=== PATIENT | female | born 1930 | race Caucasian/White ===

== ENCOUNTER 2016-07-19 13:30 | Outpatient (RCR) | payer MEDICARE ==
[~2016-07-19] VITALS: Ht 162.6 cm; Wt 63.5 kg
[2016-08-03] MEDS ORDERED: Lidocaine 4% Top Soln 50ml TOPIC ONE (11:30)
[2016-08-04] MEDS ORDERED: Lidocaine 4% Top Soln 50ml TOPIC ONE (10:00)
[2016-08-10] MEDS ORDERED: Lidocaine/Epinephrine 2% 20 ML VIAL IV ONE (17:00)
== END 2016-08-18 | disposition home or self-care (01) ==
LOC: WCC 13:30
DX: L03.116 Cellulitis of left lower limb (principal); L97.323 Non-pressure chronic ulcer of left ankle with necrosis of muscle; R60.0 Localized edema; I73.9 Peripheral vascular disease, unspecified; Z90.89 Acquired absence of other organs; Z98.84 Bariatric surgery status; M81.0 Age-related osteoporosis without current pathological fracture; G30.9 Alzheimer's disease, unspecified; F02.80 Dementia in other diseases classified elsewhere, unspecified severity, without behavioral disturbance, psychotic disturbance, mood disturbance, and anxiety; M19.90 Unspecified osteoarthritis, unspecified site; D64.9 Anemia, unspecified
CPT/HCPCS: 11043; 11100; 73721; 87070; 87181; 87205; G0463

== ENCOUNTER → 2016-08-09 | Outpatient (CLI) | payer MEDICARE ==
[~2016-08-09] VITALS: Ht 162.6 cm; Wt 63.5 kg
[~2016-08-09] MED LIST: ACETAMINOPHEN325 M1 ORAL; ARTIFICIAL TEA1 EAC2 BOTH EYES; CITALOPRAM HBR10 M1 ORAL; DICLOFENAC 1% GEL TOPIC; DONEPEZIL HCL10 M2 ORAL; DOXYCYCLINE HY100 M2 ORAL; ENSURE ORIGINA237 ML PO; FERROUS SULFAT325 MG ORAL; GABAPENTIN300 MG ORAL; LOPERAMIDE2 MG PO; LORAZEPAM1 MG ORAL; Lidocaine 4% Top Soln 50ml TOPIC ONE; OMEPRAZOLE40 M1 ORAL; TRIAMCINOLONE 0.1% TP; TYLENOL EXTRA500 MG ORAL; VITAMIN D400 INTLU ORAL
--- NOTE | 2016-08-09 16:51 | Diagnostic Imaging Report ---
Indication: Nonhealing wound in the lateral part ankle. Technique: Left ankle/hindfoot imaging utilizing multiplanar T1 fast spin-echo, proton and T2 fast spin-echo with fat saturation, and STIR. Comparison: None Findings: The area of ulceration and skin/subcutaneous edema is noted on the lateral part of the ankle. The skin defect is noted. The adjacent lateral malleolus demonstrates normal bone marrow signal. The other osseous structures demonstrated on this study which include the ankle and hindfoot demonstrates normal signal intensity without evidence of osteomyelitis. Generalized subcutaneous edema is also noted within the ankle and the visualized part of the lower leg. There is no obvious abscess. Impression: No evidence of acute osteomyelitis or definite evidence of abscess. Lateral ankle nonhealing wound/ulceration noted. Cellulitis noted.
== END | disposition home or self-care (01) ==
LOC: MRI 08-04 10:07
DX: M86.9 Osteomyelitis, unspecified (principal); L03.116 Cellulitis of left lower limb

== ENCOUNTER 2016-08-25 18:07 | Inpatient (IN) | payer MEDICARE ==
[~2016-08-25] VITALS: Ht 154.9 cm; Wt 49.9 kg
[2016-08-25] MEDS ORDERED: Unasyn 3gm Inj ONE (18:43)
--- NOTE | 2016-08-25 18:43 | Emergency Room Report ---
History of Present Illness General Chief Complaint: General Complaint Source: Medical Record, EMS, PMD Present Illness HPI 86 YOF sent by PMD Dr Young from [facility] for evaluation of "wound" to be treated with IV Abx as patient cant get IV Abx at SNF. Few days-week duration. Denies fever/chills. Allergies: Coded Allergies: NO KNOWN DRUG ALLERGIES (Verified Allergy, Unknown, 08/03/16) Patient History Limited by: language barrier, age, medical condition, other - Alzheimers dementia Past Medical History: HTN, other - Alzheimers, dementia, depression, HTN, osteopororosis, CKD Past Surgical History: unable to obtain Pertinent Family History: unable to obtain Social History: Denies: alcohol use, drug use, smoking Last Menstrual Period: n/a Now: No Immunizations: UTD Nursing Documentation-PMH Hx Hypertension: Yes History Of Psychiatric Problem: Yes - depression osteoporosis Hx Neurological Problems: Yes - dementia Review of Systems All Other Systems: limited - limited by alzheimers Physical Exam Vital Signs Date Time Temp Pulse Resp B/P Pulse Ox O2 Delivery O2 Flow Rate FiO2 08/25/16 18:11 99.0 87 16 103/62 99 Room Air Sp02 EP Interpretation: reviewed, normal General Appearance: normal inspection, well appearing, no apparent distress, alert, GCS 15, non-toxic Head: normocephalic, atraumatic Eyes: bilateral eye EOMI, bilateral eye PERRL ENT: normal ENT inspection, hearing grossly normal, normal voice Neck: normal inspection, full range of motion, supple, no bony tend Respiratory: normal inspection, lungs clear, normal breath sounds, no respiratory distress, no retraction, no wheezing Cardiovascular #1: regular rate, rhythm, no edema Gastrointestinal: normal inspection, normal bowel sounds, non tender, soft, no guarding, no hernia Genitourinary: no CVA tenderness Musculoskeletal: normal inspection, back normal, normal range of motion, Austin' s Sign negative Neurologic: normal inspection, alert, responsive, speech normal Psychiatric: normal inspection, judgement/insight normal, mood/affect normal Skin: normal inspection, other - left lower extremity: There is a large area of warm erythema with central ulcer *stage 1* on lateral portion of lower extremity near ankle. Diffusely tender to palpation. Circumferential of foot. There is also some erythema/ecchymoses of upper left thigh Medical Decision Making Diagnostic Impression: Primary Impression: Cellulitis of leg, left ER Course 86 YOF with pain, swelling, redness to lower left extremity. VSS. Afebrile. Not septic. Baseline dementia. Labs: H&H stable. Leuks normal. Empiric Abx given for presumed cellulitis Blood Cx pending Endorsed to Dr Ham for med/surg admission at 645pm Rhythm Strip Diag. Results EP Interpretation: yes Rate: 82 Rhythm: NSR, no PVC's, no ectopy Last Vital Signs Date Time Temp Pulse Resp B/P Pulse Ox O2 Delivery O2 Flow Rate FiO2 08/25/16 18:11 99.0 87 16 103/62 99 Room Air Status: improved Disposition: ADMITTED INPATIENT Condition: Serious SHMUEL ROBERTSON M.D. Aug 25, 2016 18:43
[2016-08-25] MEDS ORDERED: Vancomycin 1 GM in NS 275 ML IV ONE (18:45)
[2016-08-25] MEDS ORDERED: Ampicillin/Sulbactam Sod 3 GM in NS 110 ML IV SCH (18:45)
[2016-08-25 19:20] LABS: ALANINE AMINOTRANSFERASE 7 U/L (3-33); ALBUMIN/GLOBULIN RATIO 0.9 (1.0-2.7); ANION GAP 18 (5-15); ASPARTATE AMINO TRANSFERASE 13 U/L (5-40); CALCIUM 9.1 mg/dL (8.6-10.2); CARBON DIOXIDE 25 mEQ/L (20-30); CHLORIDE 98 mEQ/L (98-107); CREATININE 0.7 mg/dL (0.5-0.9); HEMOLYSIS 5; POTASSIUM 3.5 mEQ/L (3.4-4.9); SODIUM 141 mEQ/L (135-145); TOTAL PROTEIN 7.5 g/dL (6.6-8.7)
[2016-08-25 19:23] LABS: BASOPHILS % (AUTO) 0.9 % (0.0-2.0); LYMPHOCYTES % (AUTO) 20.3 % (20.0-45.0); MEAN CORPUSCULAR HGB CONC 33.2 G/DL (32.0-36.0); MEAN CORPUSCULAR VOLUME 84 FL (80-99); MEAN PLATELET VOLUME 5.2 FL (6.5-10.1); MONOCYTES % (AUTO) 4.4 % (1.0-10.0); NEUTROPHILS % (AUTO) 73.4 % (45.0-75.0); PLATELET COUNT 405 K/UL (150-450); RED BLOOD COUNT 3.59 M/UL (4.20-5.40); RED CELL DISTRIBUTION WIDTH 13.4 % (11.6-14.8); WHITE BLOOD COUNT 8.1 K/UL (4.8-10.8)
[2016-08-25 19:30] LABS: CKMB < 1.5 ng/mL (< 3.8)
[2016-08-25] MEDS ORDERED: Vancomycin 1gm inj IVPB ONE (19:38)
[2016-08-25 20:30] VITALS: BP 147/96
[2016-08-25] MEDS ORDERED: Haloperidol 5mg/ml Inj IM ONE (20:30)
--- NOTE | 2016-08-25 20:31 | History & Physical ---
History and Physical History & Physicial H&P dictated #[id number] Dx: Left LE Cellulitis with wound Possible PAD with LLE arterial ulcer Dementia HTN Osteoporosis plan abx - vanco arterial US Vascular consult zyprexa prn agitation 1:1 SANTINO Momin M.D. Aug 25, 2016 20:31
[2016-08-25] MEDS ORDERED: Enoxaparin 40mg Inj SUBQ SCH (21:00)
[2016-08-25] MEDS ORDERED: DONEPEZIL HCL10 M2 ORAL (22:13)
[2016-08-25] MEDS ORDERED: CITALOPRAM HBR10 M1 ORAL (22:13)
[2016-08-25] MEDS ORDERED: TYLENOL EXTRA500 MG ORAL (22:13)
[2016-08-25] MEDS ORDERED: FERROUS SULFAT325 MG ORAL (22:14)
[2016-08-25] MEDS ORDERED: ENSURE ORIGINA237 ML PO (22:14)
[2016-08-25] MEDS ORDERED: GABAPENTIN300 MG ORAL (22:14)
[2016-08-25] MEDS ORDERED: VITAMIN D400 INTLU ORAL (22:16)
[2016-08-25] MEDS ORDERED: LORAZEPAM1 MG ORAL (22:16)
[2016-08-25] MEDS ORDERED: OMEPRAZOLE40 M1 ORAL (22:16)
[2016-08-25] MEDS ORDERED: ARTIFICIAL TEA1 EAC2 BOTH EYES (22:20)
[2016-08-25] MEDS ORDERED: DICLOFENAC 1% GEL TOPIC (22:20)
[2016-08-25] MEDS ORDERED: ACETAMINOPHEN325 M1 ORAL (22:20)
[2016-08-25] MEDS ORDERED: LOPERAMIDE2 MG PO (22:23)
[2016-08-25] MEDS ORDERED: TRIAMCINOLONE 0.1% TP (22:23)
[2016-08-25] MEDS ORDERED: LORazepam Inj 2mg/ml 1ml IV ONE (23:15)
[2016-08-26 00:03] VITALS: BP 103/93
--- NOTE | 2016-08-26 00:38 | History and Physical Report ---
DATE OF ADMISSION: 08/25/2016 REASON FOR ADMISSION: Left leg wound and cellulitis. HISTORY OF PRESENT ILLNESS: This is an 86-year-old female with history of severe dementia, depression, hypertension, osteoporosis, and CKD, who presents to the emergency room because of the left leg wound that is getting worse, more red. The patient is very confused and is unable to give any history. She is alert, awake, and oriented x1 at baseline. She was assessed as outpatient for left leg wound infection with dressing x1 week that has not been healing. There is redness and swelling around the left leg. It appears to be left ankle ulcer. PAST MEDICAL HISTORY: Alzheimer's dementia, depression, hypertension, osteoporosis, and CKD. PAST SURGICAL HISTORY: Unknown. MEDICATIONS: Acetaminophen, citalopram, donepezil, ferrous sulfate, gabapentin, lorazepam, vitamin D3, and artificial tears. ALLERGIES: No known drug allergies. SOCIAL HISTORY: The patient is coming in from [facility] . She does not smoke, drink alcohol, or use any drugs. REVIEW OF SYSTEMS: Unobtainable because of the patient's mental status. PHYSICAL EXAMINATION: VITAL SIGNS: Temperature is 99, pulse 87 respiratory rate 16, and blood pressure 103/62. Pulse ox is 99% on room air. GENERAL: In no acute distress. The patient is alert, awake, and oriented to person. HEENT: Normocephalic/atraumatic. NECK: Supple. No JVD. LUNGS: Clear to auscultation bilaterally. No crackles, rhonchi, or rales. CARDIOVASCULAR: Regular rate and rhythm. Normal S1 and S2. ABDOMEN: Soft, nontender, and nondistended. EXTREMITIES: Left lateral ankle ulcer with surrounding erythema, warmth, and tenderness to palpation. Varicose veins in both legs. SKIN: As above. The patient has left lateral ankle ulcer as well as smaller right lateral ankle ulcer. Redness over the left ankle region as well as tenderness, warmth and swelling. LABORATORY DATA: CBC - white count of 8.1, hemoglobin 10.1, and platelet count 405,000. BMP - sodium 141, potassium 3.5, chloride 98, CO2 25, BUN 19, and creatinine 0.7. LFTs are within normal limits. ASSESSMENT: 1. Left lower extremity cellulitis. 2. Left lower extremity wound, which appears to be arterial ulcer secondary to peripheral arterial disease. 3. Hypertension. 4. Alzheimer's dementia. 5. Depression. 6. Osteoporosis. 7. Chronic kidney disease. 8. Severe dementia with behavioral changes. PLAN: 1. Admit the patient to med/surg with one-to-one sitter. 2. Zyprexa 2.5 mg p.o. b.i.d. p.r.n. agitation. 3. Antibiotics-vancomycin. 4. Vascular consult. 5. Wound care. 6. Wound culture. 7. Deep venous thrombosis prophylaxis with heparin. TIME SPENT: Time spent on dictation greater than 35 minutes. Matteo Ham MD DR: RANDI JOB#: [id number] CC:
[2016-08-26 04:01] VITALS: BP 119/84
[2016-08-26 08:00] VITALS: BP 101/51
[2016-08-26 10:06] LABS: BASOPHILS % (AUTO) 1.4 % (0.0-2.0); LYMPHOCYTES % (AUTO) 18.9 % (20.0-45.0); MEAN CORPUSCULAR HEMOGLOBIN 25.7 PG (27.0-31.0); MEAN CORPUSCULAR HGB CONC 31.1 G/DL (32.0-36.0); MEAN CORPUSCULAR VOLUME 83 FL (80-99); MEAN PLATELET VOLUME 5.8 FL (6.5-10.1); MONOCYTES % (AUTO) 7.7 % (1.0-10.0); PLATELET COUNT 376 K/UL (150-450); RED BLOOD COUNT 3.37 M/UL (4.20-5.40); RED CELL DISTRIBUTION WIDTH 13.4 % (11.6-14.8); WHITE BLOOD COUNT 5.5 K/UL (4.8-10.8)
[2016-08-26 10:19] LABS: ANION GAP 14 (5-15); CALCIUM 8.3 mg/dL (8.6-10.2); CARBON DIOXIDE 24 mEQ/L (20-30); CHLORIDE 104 mEQ/L (98-107); CREATININE 0.5 mg/dL (0.5-0.9); HEMOLYSIS 4; POTASSIUM 3.5 mEQ/L (3.4-4.9); SODIUM 142 mEQ/L (135-145)
--- NOTE | 2016-08-26 10:24 | Diagnostic Imaging Report ---
Indication: Shortness of breath Technique: XRAY CHEST 1 V Comparison: None Findings: Cardiomediastinal silhouette is within normal limits. Atherosclerotic changes are seen. There is mild central pulmonary vascular congestion. Degenerative changes of the spine are noted. There is no consolidation or pleural effusion. Impression: Mild central pulmonary vascular congestion. No focal consolidation. Clinical correlation/followup recommended.
[2016-08-26 12:00] VITALS: BP 110/73
--- NOTE | 2016-08-26 15:07 | Internal Med Progress Note ---
Subjective Date of Service: Aug 26, 2016 Physician Name Braulio Vasquez Attending Physician Matteo Ham M.D. Current Medications Medications (Trade) Dose Ordered Sig/Gregorio Route PRN Reason Start Time Stop Time Status Last Admin Dose Admin Acetaminophen (Tylenol) 650 mg Q4H PRN ORAL Mild Pain (Pain Scale 1-3) 08/25/16 20:15 09/24/16 20:14 Dextrose (Dextrose 50%) STAT PRN IV Hypoglycemia 08/25/16 20:15 09/24/16 20:14 Enoxaparin Sodium (Lovenox) 40 mg Q24H SUBQ 08/25/16 21:00 09/24/16 20:59 08/25/16 21:43 Olanzapine (ZyPREXA) 2.5 mg BIDPRN PRN ORAL agitation 08/25/16 20:15 09/24/16 20:14 Sodium Chloride (Sodium Chloride 1000ml bag) 1,000 ml @ 75 mls/hr [id number] IVLG 08/25/16 21:00 09/24/16 20:59 08/26/16 14:46 Vancomycin HCl 1 ea 1 ea DAILY PRN MISC Per rx protocol 08/25/16 20:15 09/24/16 20:14 Vancomycin HCl/ Dextrose (Vancomycin/D5W) 275 ml @ 183.708 mls/hr Q48H IVPB 08/27/16 20:00 09/01/16 19:59 Allergies: Coded Allergies: NO KNOWN DRUG ALLERGIES (Verified Allergy, Unknown, 08/03/16) ROS Limited/Unobtainable: Yes Subjective 86 YO F admitted with cellulitis leg. Cover for Int Med-Dr Ham Objective Last Vital Signs Date Time Temp Pulse Resp B/P Pulse Ox O2 Delivery O2 Flow Rate FiO2 08/26/16 12:00 97.7 61 20 110/73 97 Room Air Laboratory Tests Test 08/25/16 18:30 08/26/16 09:15 White Blood Count 8.1 K/UL (4.8-10.8) 5.5 K/UL (4.8-10.8) Red Blood Count 3.59 M/UL (4.20-5.40) L 3.37 M/UL (4.20-5.40) L Hemoglobin 10.1 G/DL (12.0-16.0) L 8.6 G/DL (12.0-16.0) L Hematocrit 30.2 % (37.0-47.0) L 27.8 % (37.0-47.0) L Mean Corpuscular Volume 84 FL (80-99) 83 FL (80-99) Mean Corpuscular Hemoglobin 28.0 PG (27.0-31.0) 25.7 PG (27.0-31.0) L Mean Corpuscular Hemoglobin Concent 33.2 G/DL (32.0-36.0) 31.1 G/DL (32.0-36.0) L Red Cell Distribution Width 13.4 % (11.6-14.8) 13.4 % (11.6-14.8) Platelet Count 405 K/UL (150-450) 376 K/UL (150-450) Mean Platelet Volume 5.2 FL (6.5-10.1) L 5.8 FL (6.5-10.1) L Neutrophils (%) (Auto) 73.4 % (45.0-75.0) 71.0 % (45.0-75.0) Lymphocytes (%) (Auto) 20.3 % (20.0-45.0) 18.9 % (20.0-45.0) L Monocytes (%) (Auto) 4.4 % (1.0-10.0) 7.7 % (1.0-10.0) Eosinophils (%) (Auto) 1.0 % (0.0-3.0) 1.0 % (0.0-3.0) Basophils (%) (Auto) 0.9 % (0.0-2.0) 1.4 % (0.0-2.0) Sodium Level 141 mEQ/L (135-145) 142 mEQ/L (135-145) Potassium Level 3.5 mEQ/L (3.4-4.9) 3.5 mEQ/L (3.4-4.9) Chloride Level 98 mEQ/L (98-107) 104 mEQ/L (98-107) Carbon Dioxide Level 25 mEQ/L (20-30) 24 mEQ/L (20-30) Anion Gap 18 (5-15) H 14 (5-15) Blood Urea Nitrogen 19 mg/dL (7-23) 13 mg/dL (7-23) Creatinine 0.7 mg/dL (0.5-0.9) 0.5 mg/dL (0.5-0.9) Estimat Glomerular Filtration Rate mL/min (>60) mL/min (>60) Glucose Level 98 mg/dL (74-106) 101 mg/dL (74-106) Calcium Level 9.1 mg/dL (8.6-10.2) 8.3 mg/dL (8.6-10.2) L Total Bilirubin 0.3 mg/dL (0.0-1.2) Aspartate Amino Transf (AST/SGOT) 13 U/L (5-40) Alanine Aminotransferase (ALT/SGPT) 7 U/L (3-33) Alkaline Phosphatase 33 U/L (35-104) L Creatine Kinase MB < 1.5 ng/mL (< 3.8) Total Protein 7.5 g/dL (6.6-8.7) Albumin 3.7 g/dL (3.5-5.2) Globulin 3.8 g/dL Albumin/Globulin Ratio 0.9 (1.0-2.7) L Intake and Output 08/25/16 08/26/16 19:00 07:00 Intake Total 0 ml 785 ml Balance 0 ml 785 ml Intake Oral 0 ml IV Total 785 ml # Voids 1 Objective General: alert, cooperative, no distress, appears stated age Head: normocephalic, without obvious abnormality, atraumatic Eyes: conjunctivae/corneas clear. PERRL, EOM's intact Throat: lips, mucosa, and tongue normal. MMM Neck: supple, symmetrical, trachea midline, and no JVD Lungs: clear to auscultation bilaterally Heart: regular rate and rhythm, S1, S2 normal, no murmur, click, rub or gallop Abdomen: soft, non-tender, non-distended, bowel sounds normal; no masses or organomegaly Extremities: extremities normal, atraumatic, no cyanosis or edema Pulses: 2+ and symmetric Skin: Left leg with erythema and ulcer;skin color, texture, turgor normal; no rashes or lesions Neurologic: grossly normal, no focal deficits Assessment/Plan Problem List: (1) Hypertension (2) Renal failure (3) Peripheral vascular disease Assessment & Plan: await vascular surg consult. (4) Alzheimer's dementia (5) Major depression (6) Cellulitis of leg, left Assessment & Plan: Continue vanco (7) Osteoporosis (8) Dementia with behavioral disturbance Assessment & Plan: Cont zyprexa prn. Status: not improved BRAULIO VASQUEZ Aug 26, 2016 15:07
[2016-08-26 16:00] VITALS: BP 109/54
[2016-08-26 17:04] LABS: BASOPHILS % (AUTO) 1.2 % (0.0-2.0); EOSINOPHILS % (AUTO) 1.1 % (0.0-3.0); LYMPHOCYTES % (AUTO) 20.2 % (20.0-45.0); MEAN CORPUSCULAR HGB CONC 32.3 G/DL (32.0-36.0); MEAN CORPUSCULAR VOLUME 83 FL (80-99); MEAN PLATELET VOLUME 5.4 FL (6.5-10.1); MONOCYTES % (AUTO) 4.8 % (1.0-10.0); NEUTROPHILS % (AUTO) 72.7 % (45.0-75.0); PLATELET COUNT 329 K/UL (150-450); RED BLOOD COUNT 3.46 M/UL (4.20-5.40); RED CELL DISTRIBUTION WIDTH 13.5 % (11.6-14.8); WHITE BLOOD COUNT 5.4 K/UL (4.8-10.8)
--- NOTE | 2016-08-26 18:13 | General Progress Note ---
Progress Note Progress Note Patient seen and examined Consult dictated # [id number] MONTY GONZALEZ Aug 26, 2016 18:13
[2016-08-26 19:00] VITALS: BP 114/59
[2016-08-27 00:24] VITALS: BP 98/50
--- NOTE | 2016-08-27 02:38 | Consultation ---
DATE OF CONSULTATION: 08/26/2016 VASCULAR SURGERY CONSULTATION CONSULTING PHYSICIAN: Vin Salas M.D. REFERRING PHYSICIAN: Matteo Ham M.D. REASON FOR CONSULTATION: Left ankle wound and cellulitis. HISTORY OF PRESENT ILLNESS: The patient is an 86-year-old female who suffers from dementia and agitation. The patient presented with left leg swelling and ankle wound ulceration. Vascular Surgery is consulted for further evaluation. The patient is confused. All the history is obtained from the medical records. PAST MEDICAL HISTORY: As above history of dementia, Alzheimer's, hypertension, osteoporosis, and renal dysfunction. MEDICATIONS: See attached MAR. ALLERGIES: No known drug allergies. SOCIAL HISTORY: Resides in assisted [facility] . No noted history of smoking, drugs, or alcohol abuse. FAMILY HISTORY: Unobtainable given the patient's altered mental status. REVIEW OF SYSTEMS: Unobtainable due to altered mental status. PHYSICAL EXAMINATION: GENERAL: The patient is awake, but confused, somewhat agitated. VITAL SIGNS: She is afebrile 99, heart rate 87, blood pressure 103/62, respirations 16, and saturation 99%. NECK: She has palpable radial pulses. Neck supple. No carotid bruits. LUNGS: Clear to auscultation bilaterally. HEART: Regular rate and rhythm. ABDOMEN: Soft and nontender. EXTREMITIES: She has palpable femoral pulses, weakly palpable popliteal pulse, palpable dorsalis pedis pulses bilaterally. Posterior tibial weaker . Feet are warm and well perfused. There is left anterior lateral ankle ulceration with localized necrosis. There is extensive skin discoloration extending from the left plantar foot all the way up to the left buttock area, unclear whether this is ecchymosis versus skin cellulitis. She has no evidence of edema. LABORATORY DATA: Laboratory revealed a WBC 8.1, hemoglobin 10.1, and platelet count 405,000. BUN is 19 and creatinine 0.7. IMPRESSION: 1. Left lateral ankle wound ulceration with necrosis. 2. Extensive left leg skin discoloration and ecchymosis with possible cellulitis from the left plantar foot all the way down to the left gluteal area, rule out infection versus fall or ecchymosis. 3. History of dementia, Alzheimer's, agitation, depression, hypertension, and arterial occlusive disease. PLAN: 1. We will obtain lower extremity arterial venous duplex. 2. Continue local ankle wound care and Podiatry, surgery consultation. 3. We will order a CT angiogram of the abdomen and lower extremities to evaluate the perfusion and circulation. Continue with DVT and decubitus precautions. Vin Salas M.D. DR: SOLO JOB#: [id number] CC: Matteo Ham MD
[2016-08-27 04:00] VITALS: BP 100/58
[2016-08-27] MEDS ORDERED: LORazepam Inj 2mg/ml 1ml IV SCH (06:00)
[2016-08-27 07:37] LABS: ANION GAP 16 (5-15); CALCIUM 8.3 mg/dL (8.6-10.2); CARBON DIOXIDE 23 mEQ/L (20-30); CHLORIDE 104 mEQ/L (98-107); CREATININE 0.6 mg/dL (0.5-0.9); HEMOLYSIS 2; POTASSIUM 3.6 mEQ/L (3.4-4.9); SODIUM 143 mEQ/L (135-145)
[2016-08-27 07:40] LABS: BASOPHILS % (AUTO) 1.3 % (0.0-2.0); EOSINOPHILS % (AUTO) 1.9 % (0.0-3.0); LYMPHOCYTES % (AUTO) 23.3 % (20.0-45.0); MEAN CORPUSCULAR HGB CONC 31.4 G/DL (32.0-36.0); MEAN CORPUSCULAR VOLUME 83 FL (80-99); MEAN PLATELET VOLUME 5.3 FL (6.5-10.1); MONOCYTES % (AUTO) 7.7 % (1.0-10.0); NEUTROPHILS % (AUTO) 65.8 % (45.0-75.0); PLATELET COUNT 356 K/UL (150-450); RED BLOOD COUNT 3.34 M/UL (4.20-5.40); RED CELL DISTRIBUTION WIDTH 13.4 % (11.6-14.8)
[2016-08-27 08:00] VITALS: BP 106/60
[2016-08-27] MEDS ORDERED: NS 275ml ONE (08:40)
[2016-08-27] MEDS ORDERED: Tubing IV Secondary IV ONE ×2 (08:40)
[2016-08-27 12:00] VITALS: BP 107/58
[2016-08-27] MEDS: OLANZapine 2.5mg tab ORAL PRN ×2 (13:02→23:52)
--- NOTE | 2016-08-27 13:47 | Consultation ---
Consult Note Consult Note PODIATRIC CONSULT DATE: 08/27/16 REASON FOR CONSULT: LEFT LEG ULCER CONSULTING PHYSICIAN: Edd Perez DPM covering for Fernando Mckee ALLERGIES: PCN HISTORY OF PRESENT ILLNESS: Patient is unable to communicate effectively. Therefore, the history was obtained from reviewing the chart. Per nursing staff no overnight events. No nausea, vomiting, fevers, or chills reported. Left leg ulcer is of unknown etiology and duration. It is painful with palpation. Patient has been transported from assisted living facility. PAST MEDICAL HISTORY: HTN, DEMENTIA, ALZHEIMERS, OSTEOPEROSIS, CKD FAMILY AND SOCIAL HISTORY: Unable to obtain Last 24 Hour Vital Signs Date Time Temp Pulse Resp B/P Pulse Ox O2 Delivery O2 Flow Rate FiO2 08/27/16 08:00 97.9 71 16 106/60 98 Room Air 08/27/16 04:00 97.9 69 18 100/58 96 Room Air 08/27/16 00:24 98.1 71 14 98/50 98 Room Air 08/26/16 19:00 98.4 69 20 114/59 96 Room Air 08/26/16 16:00 97.7 86 20 109/54 96 Room Air Laboratory Tests Test 08/26/16 16:20 08/27/16 04:55 08/27/16 05:44 White Blood Count 5.4 K/UL (4.8-10.8) 5.0 K/UL (4.8-10.8) Red Blood Count 3.46 M/UL (4.20-5.40) L 3.34 M/UL (4.20-5.40) L Hemoglobin 9.3 G/DL (12.0-16.0) L 8.7 G/DL (12.0-16.0) L Hematocrit 28.8 % (37.0-47.0) L 27.7 % (37.0-47.0) L Mean Corpuscular Volume 83 FL (80-99) 83 FL (80-99) Mean Corpuscular Hemoglobin 27.0 PG (27.0-31.0) 26.0 PG (27.0-31.0) L Mean Corpuscular Hemoglobin Concent 32.3 G/DL (32.0-36.0) 31.4 G/DL (32.0-36.0) L Red Cell Distribution Width 13.5 % (11.6-14.8) 13.4 % (11.6-14.8) Platelet Count 329 K/UL (150-450) 356 K/UL (150-450) Mean Platelet Volume 5.4 FL (6.5-10.1) L 5.3 FL (6.5-10.1) L Neutrophils (%) (Auto) 72.7 % (45.0-75.0) 65.8 % (45.0-75.0) Lymphocytes (%) (Auto) 20.2 % (20.0-45.0) 23.3 % (20.0-45.0) Monocytes (%) (Auto) 4.8 % (1.0-10.0) 7.7 % (1.0-10.0) Eosinophils (%) (Auto) 1.1 % (0.0-3.0) 1.9 % (0.0-3.0) Basophils (%) (Auto) 1.2 % (0.0-2.0) 1.3 % (0.0-2.0) Sodium Level 143 mEQ/L (135-145) Potassium Level 3.6 mEQ/L (3.4-4.9) Chloride Level 104 mEQ/L (98-107) Carbon Dioxide Level 23 mEQ/L (20-30) Anion Gap 16 (5-15) H Blood Urea Nitrogen 14 mg/dL (7-23) Creatinine 0.6 mg/dL (0.5-0.9) Estimat Glomerular Filtration Rate mL/min (>60) Glucose Level 92 mg/dL (74-106) Calcium Level 8.3 mg/dL (8.6-10.2) L Microbiology Date/Time Source Procedure Growth Status 08/25/16 18:45 Blood Blood Culture - Preliminary NO GROWTH AFTER 24 HOURS Resulted 08/25/16 18:43 Skin Gram Stain - Final Resulted 08/25/16 18:43 Skin Wound Culture - Preliminary NO GROWTH AFTER 24 HOURS Resulted PHYSICAL EXAM: DERMATOLOGICAL: Left lateral distal leg with two full thickness ulcers in close proximity. The proximal wound probes to fascia and the distal wound probes to subcutaneous tissue. Purulence noted. No malodor present. Wound base is fibrotic. It does not undermine. Periwound area is painful with palpation. There is erythema surrounding the wound which has covered the entire left lower extremity from the foot to the buttock area NEUROLOGICAL: Periwound area is painful with palpation. Unable to assess light touch sensation VASCULAR: Dorsalis pedis is palpable and posterior tibial pulse is lightly palpable. Edema and erythema surrounding the wound MUSCULOSKELETAL: Decreased muscle strength bilaterally. Patient in non ambulatory . Assessment/Plan ASSESSMENT: Left lower leg ulcer with cellulitis PLAN: - The margin of the cellulitis was marked - Ordered wound cultures - Ordered MRI - Offload heels - Continue antibiotics - Continue daily dressing changes using Santyl THANK YOU FOR THE CONSULTATION Edd Perez DPM Aug 27, 2016 13:47
[2016-08-27 16:00] LABS: APPEARANCE,URINE SLIGHTLY CLOUDY; KETONES,URINE NEGATIVE (NEGATIVE); LEUKOCYTE ESTERASE ,URINE 1+ (NEGATIVE); NITRITE,URINE NEGATIVE (NEGATIVE); PH,URINE 6 (4.5-8.0); PROTEIN,URINE 2+ (NEGATIVE); UROBILINOGEN,URINE NORMAL MG/DL (0.0-1.0)
[2016-08-27 16:06] VITALS: BP 110/61
[2016-08-27 16:11] LABS: RBC,URINE 20-30 /HPF (0 - 2)
[2016-08-27 16:12] LABS: BACTERIA,URINE FEW /HPF; SQUAMOUS EPITHELIAL CELL,UR FEW /LPF (NONE/OCC)
[2016-08-27 19:00] VITALS: BP 136/74
[2016-08-27] MEDS: Vancomycin 1gm in D5W 275ml IVPB SCH (20:09)
--- NOTE | 2016-08-27 23:56 | Internal Med Progress Note ---
Subjective Physician Name Matteo Mays Attending Physician Matteo Mays M.D. Current Medications Medications (Trade) Dose Ordered Sig/Gregorio Route PRN Reason Start Time Stop Time Status Last Admin Dose Admin Acetaminophen (Tylenol) 650 mg Q4H PRN ORAL Mild Pain (Pain Scale 1-3) 08/25/16 20:15 09/24/16 20:14 Collagenase (Santyl) 1 applic DAILY TOPIC 08/27/16 09:00 09/26/16 08:59 Dextrose (Dextrose 50%) STAT PRN IV Hypoglycemia 08/25/16 20:15 09/24/16 20:14 Olanzapine (ZyPREXA) 2.5 mg BIDPRN PRN ORAL agitation 08/25/16 20:15 09/24/16 20:14 08/27/16 23:52 Sodium Chloride (Sodium Chloride 1000ml bag) 1,000 ml @ 75 mls/hr [id number] IVLG 08/25/16 21:00 09/24/16 20:59 08/27/16 14:22 Vancomycin HCl 1 ea 1 ea DAILY PRN MISC Per rx protocol 08/25/16 20:15 09/24/16 20:14 Vancomycin HCl/ Dextrose (Vancomycin/D5W) 275 ml @ 183.708 mls/hr Q48H IVPB 08/27/16 20:00 09/01/16 19:59 08/27/16 20:09 Allergies: Coded Allergies: NO KNOWN DRUG ALLERGIES (Verified Allergy, Unknown, 08/03/16) Uncoded Allergies: pcn (Allergy, Unknown, 08/27/16) per nephew pcn allergy ROS Limited/Unobtainable: Yes Subjective had vaginal bleeding 1: 1 sitter confused Objective Last Vital Signs Date Time Temp Pulse Resp B/P Pulse Ox O2 Delivery O2 Flow Rate FiO2 08/27/16 19:00 97.3 88 20 136/74 98 Room Air Laboratory Tests Test 08/27/16 04:55 08/27/16 05:44 08/27/16 13:15 White Blood Count 5.0 K/UL (4.8-10.8) Red Blood Count 3.34 M/UL (4.20-5.40) L Hemoglobin 8.7 G/DL (12.0-16.0) L Hematocrit 27.7 % (37.0-47.0) L Mean Corpuscular Volume 83 FL (80-99) Mean Corpuscular Hemoglobin 26.0 PG (27.0-31.0) L Mean Corpuscular Hemoglobin Concent 31.4 G/DL (32.0-36.0) L Red Cell Distribution Width 13.4 % (11.6-14.8) Platelet Count 356 K/UL (150-450) Mean Platelet Volume 5.3 FL (6.5-10.1) L Neutrophils (%) (Auto) 65.8 % (45.0-75.0) Lymphocytes (%) (Auto) 23.3 % (20.0-45.0) Monocytes (%) (Auto) 7.7 % (1.0-10.0) Eosinophils (%) (Auto) 1.9 % (0.0-3.0) Basophils (%) (Auto) 1.3 % (0.0-2.0) Sodium Level 143 mEQ/L (135-145) Potassium Level 3.6 mEQ/L (3.4-4.9) Chloride Level 104 mEQ/L (98-107) Carbon Dioxide Level 23 mEQ/L (20-30) Anion Gap 16 (5-15) H Blood Urea Nitrogen 14 mg/dL (7-23) Creatinine 0.6 mg/dL (0.5-0.9) Estimat Glomerular Filtration Rate mL/min (>60) Glucose Level 92 mg/dL (74-106) Calcium Level 8.3 mg/dL (8.6-10.2) L Urine Color Yellow Urine Appearance Slightly cloudy Urine pH 6 (4.5-8.0) Urine Specific [place] 1.020 (1.005-1.035) Urine Protein 2+ (NEGATIVE) H Urine Glucose (UA) Negative (NEGATIVE) Urine Ketones Negative (NEGATIVE) Urine Occult Blood 5+ (NEGATIVE) H Urine Nitrite Negative (NEGATIVE) Urine Bilirubin Negative (NEGATIVE) Urine Urobilinogen Normal MG/DL (0.0-1.0) Urine Leukocyte Esterase 1+ (NEGATIVE) H Urine RBC 20-30 /HPF (0 - 2) H Urine WBC 5-10 /HPF (0 - 2) H Urine Squamous Epithelial Cells Few /LPF (NONE/OCC) Urine Bacteria Few /HPF (NONE) Microbiology Date/Time Source Procedure Growth Status 08/25/16 18:45 Blood Blood Culture - Preliminary NO GROWTH AFTER 24 HOURS Resulted 08/25/16 18:30 Blood Blood Culture - Preliminary NO GROWTH AFTER 24 HOURS Resulted 08/25/16 18:43 Skin Gram Stain - Final Resulted 08/25/16 18:43 Skin Wound Culture - Preliminary NO GROWTH AFTER 24 HOURS Resulted Intake and Output 08/26/16 08/27/16 19:00 07:00 Intake Total 385 ml 345 ml Balance 385 ml 345 ml Intake Oral 60 ml 120 ml IV Total 325 ml 225 ml # Voids 2 4 # Bowel Movements 4 Objective PHYSICAL EXAMINATION: GENERAL: In no acute distress. The patient is alert, awake, and oriented to person. HEENT: Normocephalic/atraumatic. NECK: Supple. No JVD. LUNGS: Clear to auscultation bilaterally. No crackles, rhonchi, or rales. CARDIOVASCULAR: Regular rate and rhythm. Normal S1 and S2. ABDOMEN: Soft, nontender, and nondistended. EXTREMITIES: Left lateral ankle ulcer with surrounding erythema, warmth, and tenderness to palpation. Varicose veins in both legs. SKIN: As above. The patient has left lateral ankle ulcer as well as smaller right lateral ankle ulcer. Redness over the left ankle region as well as tenderness, warmth and swelling. Assessment/Plan Assessment/Plan ASSESSMENT: 1. Left lower extremity cellulitis. 2. Left lower extremity wound, which appears to be arterial ulcer secondary to peripheral arterial disease. 3. Hypertension. 4. Alzheimer's dementia. 5. Depression. 6. Osteoporosis. 7. Chronic kidney disease. 8. Severe dementia with behavioral changes. 9. Rash - possibly bed bugs 10. vaginal bleeding PLAN: 1. med/surg with one-to-one sitter. 2. Zyprexa 2.5 mg p.o. b.i.d. p.r.n. agitation. 3. Antibiotics-vancomycin. 4. Vascular consult. Podiatry recs appreciated 5. Wound care. 6. Wound culture. 7. Deep venous thrombosis prophylaxis with heparin. 8. CT angio LE 9. MRI Left leg 10. transvaginal US ; monitor h/h MATTEO MAYS M.D. Aug 27, 2016 23:56
[2016-08-28] VITALS: BP 123/63
[2016-08-28 04:00] VITALS: BP 151/87
[2016-08-28 08:16] VITALS: BP 129/77
[2016-08-28] MEDS ORDERED: Sterile Water Irrig 1000ml IRRIG ONE (08:39)
--- NOTE | 2016-08-28 11:08 | Internal Med Progress Note ---
Subjective Date of Service: Aug 28, 2016 Physician Name Braulio Vasquez Attending Physician Matteo Ham M.D. Current Medications Medications (Trade) Dose Ordered Sig/Gregorio Route PRN Reason Start Time Stop Time Status Last Admin Dose Admin Acetaminophen (Tylenol) 650 mg Q4H PRN ORAL Mild Pain (Pain Scale 1-3) 08/25/16 20:15 09/24/16 20:14 Collagenase (Santyl) 1 applic DAILY TOPIC 08/27/16 09:00 09/26/16 08:59 Dextrose (Dextrose 50%) STAT PRN IV Hypoglycemia 08/25/16 20:15 09/24/16 20:14 Olanzapine (ZyPREXA) 2.5 mg BIDPRN PRN ORAL agitation 08/25/16 20:15 09/24/16 20:14 08/27/16 23:52 Sodium Chloride (Sodium Chloride 1000ml bag) 1,000 ml @ 75 mls/hr [id number] IVLG 08/25/16 21:00 09/24/16 20:59 08/28/16 02:10 Vancomycin HCl 1 ea 1 ea DAILY PRN MISC Per rx protocol 08/25/16 20:15 09/24/16 20:14 Vancomycin HCl/ Dextrose (Vancomycin/D5W) 275 ml @ 183.708 mls/hr Q48H IVPB 08/27/16 20:00 09/01/16 19:59 08/27/16 20:09 Allergies: Coded Allergies: NO KNOWN DRUG ALLERGIES (Verified Allergy, Unknown, 08/03/16) Uncoded Allergies: pcn (Allergy, Unknown, 08/27/16) per nephew pcn allergy ROS Limited/Unobtainable: No Constitutional: Reports: no symptoms HEENT: Reports: no symptoms Cardiovascular: Reports: no symptoms Respiratory: Reports: no symptoms Gastrointestinal/Abdominal: Reports: no symptoms Genitourinary: Reports: other - vaginal bleeding Neurologic/Psychiatric: Reports: no symptoms Subjective 86 YO F admitted with cellulitis leg. Now vaginal bleeding. Await CT abdomen/ pelvis. Cover for Int Med-Dr Ham Objective Last Vital Signs Date Time Temp Pulse Resp B/P Pulse Ox O2 Delivery O2 Flow Rate FiO2 08/28/16 08:16 98.2 73 18 129/77 96 08/28/16 04:00 Room Air Laboratory Tests Test 08/27/16 13:15 Urine Color Yellow Urine Appearance Slightly cloudy Urine pH 6 (4.5-8.0) Urine Specific [place] 1.020 (1.005-1.035) Urine Protein 2+ (NEGATIVE) H Urine Glucose (UA) Negative (NEGATIVE) Urine Ketones Negative (NEGATIVE) Urine Occult Blood 5+ (NEGATIVE) H Urine Nitrite Negative (NEGATIVE) Urine Bilirubin Negative (NEGATIVE) Urine Urobilinogen Normal MG/DL (0.0-1.0) Urine Leukocyte Esterase 1+ (NEGATIVE) H Urine RBC 20-30 /HPF (0 - 2) H Urine WBC 5-10 /HPF (0 - 2) H Urine Squamous Epithelial Cells Few /LPF (NONE/OCC) Urine Bacteria Few /HPF (NONE) Microbiology Date/Time Source Procedure Growth Status 08/25/16 18:45 Blood Blood Culture - Preliminary NO GROWTH AFTER 48 HOURS Resulted 08/25/16 18:30 Blood Blood Culture - Preliminary NO GROWTH AFTER 48 HOURS Resulted 08/25/16 18:43 Skin Gram Stain - Final Resulted 08/25/16 18:43 Skin Wound Culture - Preliminary Resulted 08/25/16 20:41 Nasal Nares MRSA Culture - Final NO METHICILLIN RESISTANT STAPH AUREUS... Complete 08/25/16 20:41 Rectum VRE Culture - Final NO VANCOMYCIN RESISTANT ENTEROCOCCUS ... Complete Intake and Output 08/27/16 08/28/16 19:00 07:00 Intake Total 570 ml 1282.416 ml Output Total 200 ml Balance 370 ml 1282.416 ml Intake Oral 120 ml 240 ml IV Total 450 ml 1042.416 ml Output Urine Total 200 ml # Voids 4 6 Objective General: alert, cooperative, no distress, appears stated age Head: normocephalic, without obvious abnormality, atraumatic Eyes: conjunctivae/corneas clear. PERRL, EOM's intact Throat: lips, mucosa, and tongue normal. MMM Neck: supple, symmetrical, trachea midline, and no JVD Lungs: clear to auscultation bilaterally Heart: regular rate and rhythm, S1, S2 normal, no murmur, click, rub or gallop Abdomen: soft, non-tender, non-distended, bowel sounds normal; no masses or organomegaly Extremities: extremities normal, atraumatic, no cyanosis or edema Pulses: 2+ and symmetric Skin: Left leg with erythema and ulcer;skin color, texture, turgor normal; no rashes or lesions Neurologic: grossly normal, no focal deficits Assessment/Plan Problem List: (1) Hypertension (2) Renal failure (3) Peripheral vascular disease Assessment & Plan: await vascular surg consult. (4) Alzheimer's dementia (5) Major depression (6) Cellulitis of leg, left Assessment & Plan: Continue vanco (7) Osteoporosis (8) Dementia with behavioral disturbance Assessment & Plan: Cont zyprexa prn. (9) Menorrhagia Assessment & Plan: Await CT abdomen/pelvis. Hold heparin. SHELL CORE AND MOLDING SUPERVISOR consult. Status: not improved BRAULIO VASQUEZ Aug 28, 2016 11:08
[2016-08-28] MEDS: OLANZapine 2.5mg tab ORAL PRN (11:33)
--- NOTE | 2016-08-28 12:15 | Wound Care Consultation ---
Wound Assessment Wound Assessment #1: Wound Number: #1 Wound Present on Admission: Yes New Wound: No Status Change of Wound: No Wound Location Body Site Modif: left, lower, lateral Wound Location Body Site: leg Wound Type: other - open ulcer with cellulitis-etiology unknown , noted cellulitis to left foot and leg extending to left buttocks area Shantal Test: Does not Shantal Wound Thickness: Full Thickness Wound Length: 4.0 Wound Width: 4.0 Wound Depth: utd Percent of Wound [place]/Red: 20 Percent of Wound Bed Yellow/Wh: 80 Wound Drainage Description: Serosanguineous Wound Drainage Amount: Moderate Tissue Surrounding Wound: Macerated - erythemic Wound General Appearance: Asymptomatic, Reddened, Draining, Necrotic Wound Assessment #2: Wound Number: #2 Wound Present on Admission: Yes New Wound: No Status Change of Wound: No Wound Location Body Site Modif: other - generalized Wound Type: scab - scattered scabs Shantal Test: Does not Shantal Percent of Wound [place]/Red: 50 - scabs Percent of Wound Black/Brown: 50 - scabs Wound Drainage Amount: None Wound Drainage Odor: None/Absent Tissue Surrounding Wound: Erythemic Wound General Appearance: Reddened, Open to air, Clean/Dry Wound Comment #1 left lower lateral leg open ulcer with cellulitis -etiology unknown. #2 cellulitis noted to left foot, left leg extending to left buttocks. #3 scattered scabs generalized body Recommendation. - Local wound care as previously ordered. -Keep clean and dry. -Turn and reposition. -Optimize nutrition. -Assess and notify MD for any further changes of condition noted. TITO RODRIGUEZ Aug 28, 2016 12:15
[2016-08-28 12:19] VITALS: BP 135/69
--- NOTE | 2016-08-28 13:04 | Consultation ---
History of Present Illness General Date patient seen: Aug 28, 2016 Time patient seen: 12:58 Chief Complaint: General Complaint Reason for Consultation: LLE cellulitis Present Illness HPI Patient is an 86 yof [place] [facility] [place]. She has been managed in outpatient wound center for a left lateral ankle ulcer for the last few weeks. She was noted to have some erythema in the LLE 10-14 days ago and was placed on oral antibiotics. When not showing improvement decision was made to admit patient for further treatment and evaluation. Allergies: Coded Allergies: NO KNOWN DRUG ALLERGIES (Verified Allergy, Unknown, 08/03/16) Uncoded Allergies: pcn (Allergy, Unknown, 08/27/16) per nephew pcn allergy Medication History Scheduled Acetaminophen* (Tylenol Extra Strength*), 500 MG ORAL TWICE A DAY, (Reported) Citalopram Hydrobromide* (Citalopram Hbr*), 10 MG ORAL DAILY, (Reported) Donepezil Hcl* (Donepezil Hcl*), 10 MG ORAL DAILY, (Reported) Ferrous Sulfate* (Ferrous Sulfate*), 325 MG ORAL TWICE A DAY, (Reported) Gabapentin* (Gabapentin*), 300 MG ORAL THREE TIMES A DAY, (Reported) Lactose-Reduced Food (Ensure Original), 237 ML PO TWICE A DAY, (Reported) Lorazepam* (Lorazepam*), 1 MG ORAL TWICE A DAY, (Reported) Omeprazole (Omeprazole), 40 MG ORAL DAILY, (Reported) Vitamin D (Vitamin D3), 2,000 UNITS ORAL DAILY, (Reported) Scheduled PRN Acetaminophen* (Acetaminophen 325MG Tablet*), 325 MG ORAL Q6H PRN for For Pain, (Reported) Dextran 70/Hypromellose (Artificial Tears), 1 DRP BOTH EYES PRN PRN for Dry Eyes , (Reported) Loperamide Hcl (Loperamide), 2 MG PO PRN PRN for Diarrhea, (Reported) [Diclofenac 1% Gel], 2 GM TOPIC PRN PRN for For Pain, (Reported) [Triamcinolone 0.1%Cr], 1 APPLIC TP PRN PRN for Itching, (Reported) Patient History Limited by: medical condition History Provided By: Medical Record Healthcare decision maker Resuscitation status Full Code Advanced Directive on File Physical Exam General Appearance: no apparent distress Lines, tubes and drains: peripheral Respiratory/Chest: no respiratory distress Cardiovascular/Chest: other - Palpable DP and PT on the left. Extremities: trace edema Skin Exam: other - Left lateral ankle ulcer with some fibrotic debris. No odor and no purulent drainage. Periskin with some erythema but no warmth. Erythema not extending past the marking made 3 days ago. Last 24 Hour Vital Signs Date Time Temp Pulse Resp B/P Pulse Ox O2 Delivery O2 Flow Rate FiO2 08/28/16 12:19 97.5 66 18 135/69 100 Room Air 08/28/16 08:16 98.2 73 18 129/77 96 08/28/16 04:00 98.0 65 18 151/87 96 Room Air 08/28/16 00:00 98.1 68 20 123/63 97 Room Air 08/27/16 19:00 97.3 88 20 136/74 98 Room Air 08/27/16 16:06 97.6 71 21 110/61 96 Room Air Intake and Output 08/27/16 08/28/16 19:00 07:00 Intake Total 570 ml 1282.416 ml Output Total 200 ml Balance 370 ml 1282.416 ml Intake Oral 120 ml 240 ml IV Total 450 ml 1042.416 ml Output Urine Total 200 ml # Voids 4 6 Laboratory Tests Test 08/27/16 13:15 Urine Color Yellow Urine Appearance Slightly cloudy Urine pH 6 (4.5-8.0) Urine Specific [place] 1.020 (1.005-1.035) Urine Protein 2+ (NEGATIVE) H Urine Glucose (UA) Negative (NEGATIVE) Urine Ketones Negative (NEGATIVE) Urine Occult Blood 5+ (NEGATIVE) H Urine Nitrite Negative (NEGATIVE) Urine Bilirubin Negative (NEGATIVE) Urine Urobilinogen Normal MG/DL (0.0-1.0) Urine Leukocyte Esterase 1+ (NEGATIVE) H Urine RBC 20-30 /HPF (0 - 2) H Urine WBC 5-10 /HPF (0 - 2) H Urine Squamous Epithelial Cells Few /LPF (NONE/OCC) Urine Bacteria Few /HPF (NONE) Height (Feet): 5 Height (Inches): 1.00 Weight (Pounds): 110 Medications Current Medications Medications (Trade) Dose Ordered Sig/Gregorio Route PRN Reason Start Time Stop Time Status Last Admin Dose Admin Acetaminophen (Tylenol) 650 mg Q4H PRN ORAL Mild Pain (Pain Scale 1-3) 08/25/16 20:15 09/24/16 20:14 Collagenase (Santyl) 1 applic DAILY TOPIC 08/27/16 09:00 09/26/16 08:59 Dextrose (Dextrose 50%) STAT PRN IV Hypoglycemia 08/25/16 20:15 09/24/16 20:14 Olanzapine (ZyPREXA) 2.5 mg BIDPRN PRN ORAL agitation 08/25/16 20:15 09/24/16 20:14 08/28/16 11:33 Sodium Chloride (Sodium Chloride 1000ml bag) 1,000 ml @ 75 mls/hr [id number] IVLG 08/25/16 21:00 09/24/16 20:59 08/28/16 02:10 Vancomycin HCl 1 ea 1 ea DAILY PRN MISC Per rx protocol 08/25/16 20:15 09/24/16 20:14 Vancomycin HCl/ Dextrose (Vancomycin/D5W) 275 ml @ 183.708 mls/hr Q48H IVPB 08/27/16 20:00 09/01/16 19:59 08/27/16 20:09 Assessment/Plan Status: stable Assessment/Plan Patient with LLE cellulitis and chronic ankle ulcer. She has no WBC elevation and erythema appears to have stabilized. Continue santyl to the ulcer and keep heels protected and offloaded. No need for surgical intervention. If she doesnt show continued clinical improvement then recommend ID consult. YOLANDA CASTREJON Aug 28, 2016 13:03
[2016-08-28] MEDS ORDERED: LORazepam Inj 2mg/ml 1ml IV ONE (13:15)
[2016-08-28 16:05] VITALS: BP 120/75
[2016-08-28 20:00] VITALS: BP_SYST 111; BP_SYST 120; BP_DIAS 59; BP_DIAS 75
[2016-08-29] VITALS (7 sets, daily range): BP systolic 101–134; BP diastolic 54–71
[2016-08-29 06:53] LABS: LYMPHOCYTES % (AUTO) 24.4 % (20.0-45.0); MEAN CORPUSCULAR HEMOGLOBIN 25.7 PG (27.0-31.0); MEAN CORPUSCULAR HGB CONC 30.8 G/DL (32.0-36.0); MEAN CORPUSCULAR VOLUME 83 FL (80-99); MEAN PLATELET VOLUME 5.8 FL (6.5-10.1); MONOCYTES % (AUTO) 8.2 % (1.0-10.0); NEUTROPHILS % (AUTO) 64.4 % (45.0-75.0); PLATELET COUNT 340 K/UL (150-450); RED BLOOD COUNT 3.55 M/UL (4.20-5.40); RED CELL DISTRIBUTION WIDTH 13.5 % (11.6-14.8); WHITE BLOOD COUNT 5.1 K/UL (4.8-10.8)
[2016-08-29 06:59] LABS: ANION GAP 11 (5-15); CALCIUM 8.1 mg/dL (8.6-10.2); CARBON DIOXIDE 26 mEQ/L (20-30); CHLORIDE 109 mEQ/L (98-107); CREATININE 0.5 mg/dL (0.5-0.9); HEMOLYSIS 0; POTASSIUM 3.6 mEQ/L (3.4-4.9); SODIUM 146 mEQ/L (135-145)
[2016-08-29] MEDS ORDERED: LORazepam Inj 2mg/ml 1ml IV ONE (08:00)
--- NOTE | 2016-08-29 15:22 | Diagnostic Imaging Report ---
APPROVED REPORT CPT Code: 87567 Present Symptoms Lower Extremity Pain: Bilateral BILATERAL: Imaging reveals a patent deep venous system bilaterally. There is no evidence of thrombus within the femoral, popliteal or tibial segments. The greater saphenous veins are also within normal limits. Doppler indicates normal spontaneous flow within these segments.
--- NOTE | 2016-08-29 15:23 | Diagnostic Imaging Report ---
APPROVED REPORT CPT Code: 68471 Symptoms Non-healing Ulcer : Left RIGHT LEG: Common femoral artery waveform analysis is within normal limits at rest. Color duplex sonography reveals patency of the superficial femoral, popliteal and tibial arteries. There is no evidence of stenosis or occlusion within these segments. Doppler tibial artery waveform analysis is within normal limits. LEFT LEG: Common femoral artery waveform analysis is within normal limits at rest. Color duplex sonography reveals patency of the superficial femoral, popliteal and tibial arteries. There is no evidence of stenosis or occlusion within these segments. Doppler tibial artery waveform analysis is compatible with moderate ischemia.
--- NOTE | 2016-08-29 16:50 | Internal Med Progress Note ---
Subjective Date of Service: Aug 29, 2016 Physician Name Braulio Vasquez Attending Physician Matteo Ham M.D. Current Medications Medications (Trade) Dose Ordered Sig/Gregorio Route PRN Reason Start Time Stop Time Status Last Admin Dose Admin Acetaminophen (Tylenol) 650 mg Q4H PRN ORAL Mild Pain (Pain Scale 1-3) 08/25/16 20:15 09/24/16 20:14 Collagenase (Santyl) 1 applic DAILY TOPIC 08/27/16 09:00 09/26/16 08:59 08/29/16 09:00 Dextrose (Dextrose 50%) STAT PRN IV Hypoglycemia 08/25/16 20:15 09/24/16 20:14 Olanzapine (ZyPREXA) 2.5 mg BIDPRN PRN ORAL agitation 08/25/16 20:15 09/24/16 20:14 08/28/16 11:33 Sodium Chloride (Sodium Chloride 1000ml bag) 1,000 ml @ 75 mls/hr [id number] IVLG 08/25/16 21:00 09/24/16 20:59 08/29/16 15:33 Vancomycin HCl 1 ea 1 ea DAILY PRN MISC Per rx protocol 08/25/16 20:15 09/24/16 20:14 Vancomycin HCl/ Dextrose (Vancomycin/D5W) 275 ml @ 183.708 mls/hr Q48H IVPB 08/27/16 20:00 09/01/16 19:59 08/27/16 20:09 Allergies: Coded Allergies: PENICILLINS (Unverified Allergy, Unknown, 08/28/16) Uncoded Allergies: pcn (Allergy, Unknown, 08/27/16) per nephew pcn allergy ROS Limited/Unobtainable: Yes Subjective 86 YO F admitted with cellulitis leg. Now vaginal bleeding. Await CT abdomen/ pelvis. Cover for Int Med-Dr Ham Objective Last Vital Signs Date Time Temp Pulse Resp B/P Pulse Ox O2 Delivery O2 Flow Rate FiO2 08/29/16 12:00 96.8 63 20 110/54 98 Room Air Laboratory Tests Test 08/29/16 06:05 White Blood Count 5.1 K/UL (4.8-10.8) Red Blood Count 3.55 M/UL (4.20-5.40) L Hemoglobin 9.1 G/DL (12.0-16.0) L Hematocrit 29.6 % (37.0-47.0) L Mean Corpuscular Volume 83 FL (80-99) Mean Corpuscular Hemoglobin 25.7 PG (27.0-31.0) L Mean Corpuscular Hemoglobin Concent 30.8 G/DL (32.0-36.0) L Red Cell Distribution Width 13.5 % (11.6-14.8) Platelet Count 340 K/UL (150-450) Mean Platelet Volume 5.8 FL (6.5-10.1) L Neutrophils (%) (Auto) 64.4 % (45.0-75.0) Lymphocytes (%) (Auto) 24.4 % (20.0-45.0) Monocytes (%) (Auto) 8.2 % (1.0-10.0) Eosinophils (%) (Auto) 2.0 % (0.0-3.0) Basophils (%) (Auto) 1.0 % (0.0-2.0) Sodium Level 146 mEQ/L (135-145) H Potassium Level 3.6 mEQ/L (3.4-4.9) Chloride Level 109 mEQ/L (98-107) H Carbon Dioxide Level 26 mEQ/L (20-30) Anion Gap 11 (5-15) Blood Urea Nitrogen 12 mg/dL (7-23) Creatinine 0.5 mg/dL (0.5-0.9) Estimat Glomerular Filtration Rate mL/min (>60) Glucose Level 93 mg/dL (74-106) Calcium Level 8.1 mg/dL (8.6-10.2) L Microbiology Date/Time Source Procedure Growth Status 08/27/16 17:30 Wound Gram Stain Pending Resulted 08/27/16 17:30 Wound Aerobic Culture - Preliminary NO GROWTH AFTER 24 HOURS Resulted 08/27/16 17:30 Wound Anaerobic Culture Pending Resulted Intake and Output 08/28/16 08/29/16 19:00 07:00 Intake Total 375 ml Balance 375 ml Intake Oral 300 ml IV Total 75 ml # Voids 2 2 # Bowel Movements 1 Objective General: alert, cooperative, no distress, appears stated age Head: normocephalic, without obvious abnormality, atraumatic Eyes: conjunctivae/corneas clear. PERRL, EOM's intact Throat: lips, mucosa, and tongue normal. MMM Neck: supple, symmetrical, trachea midline, and no JVD Lungs: clear to auscultation bilaterally Heart: regular rate and rhythm, S1, S2 normal, no murmur, click, rub or gallop Abdomen: soft, non-tender, non-distended, bowel sounds normal; no masses or organomegaly Extremities: extremities normal, atraumatic, no cyanosis or edema Pulses: 2+ and symmetric Skin: Left leg with erythema and ulcer;skin color, texture, turgor normal; no rashes or lesions Neurologic: grossly normal, no focal deficits Assessment/Plan Problem List: (1) Hypertension (2) Renal failure (3) Peripheral vascular disease Assessment & Plan: await vascular surg consult. (4) Alzheimer's dementia (5) Major depression (6) Cellulitis of leg, left Assessment & Plan: Continue vanco (7) Osteoporosis (8) Dementia with behavioral disturbance Assessment & Plan: Cont zyprexa prn. (9) Menorrhagia Assessment & Plan: Await CT abdomen/pelvis. Hold heparin. Await MEDICAL SOCIOLOGIST consult- Dr Tanner notified. Status: not improved BRAULIO VASQUEZ Aug 29, 2016 16:50
[2016-08-29] MEDS: 1/2NS w/KCl 20mEq 1000ml 1,000 ML IV SCH (17:35)
[2016-08-29] MEDS: Vancomycin 1gm in D5W 275ml IVPB SCH (20:05)
[2016-08-29] MEDS ORDERED: Vancomycin 1250mg/D5W 275ml IVPB SCH ×2 (22:00)
[2016-08-30] VITALS: BP 136/65
[2016-08-30] MEDS: OLANZapine 2.5mg tab ORAL PRN (00:07)
[2016-08-30 04:07] VITALS: BP 132/68
[2016-08-30 06:29] LABS: BASOPHILS % (AUTO) 1.1 % (0.0-2.0); EOSINOPHILS % (AUTO) 1.6 % (0.0-3.0); LYMPHOCYTES % (AUTO) 18.7 % (20.0-45.0); MEAN CORPUSCULAR HEMOGLOBIN 25.7 PG (27.0-31.0); MEAN CORPUSCULAR VOLUME 83 FL (80-99); MEAN PLATELET VOLUME 5.7 FL (6.5-10.1); MONOCYTES % (AUTO) 8.1 % (1.0-10.0); NEUTROPHILS % (AUTO) 70.5 % (45.0-75.0); PLATELET COUNT 374 K/UL (150-450); RED BLOOD COUNT 3.64 M/UL (4.20-5.40); RED CELL DISTRIBUTION WIDTH 13.4 % (11.6-14.8)
[2016-08-30 06:57] LABS: ANION GAP 15 (5-15); CALCIUM 8.2 mg/dL (8.6-10.2); CARBON DIOXIDE 25 mEQ/L (20-30); CHLORIDE 104 mEQ/L (98-107); CREATININE 0.6 mg/dL (0.5-0.9); HEMOLYSIS 0; POTASSIUM 3.4 mEQ/L (3.4-4.9); SODIUM 144 mEQ/L (135-145)
[2016-08-30 07:38] VITALS: BP 125/63
[2016-08-30] MEDS: 1/2NS w/KCl 20mEq 1000ml 1,000 ML IV SCH ×3 (07:40→22:59)
[2016-08-30 11:33] VITALS: BP 122/64
--- NOTE | 2016-08-30 12:12 | Internal Med Progress Note ---
Subjective Date of Service: Aug 30, 2016 Physician Name Braulio Vasquez Attending Physician Matteo Ham M.D. Current Medications Medications (Trade) Dose Ordered Sig/Gregorio Route PRN Reason Start Time Stop Time Status Last Admin Dose Admin Acetaminophen (Tylenol) 650 mg Q4H PRN ORAL Mild Pain (Pain Scale 1-3) 08/25/16 20:15 09/24/16 20:14 Collagenase 1 applic 1 applic DAILY TOPIC 08/27/16 09:00 09/26/16 08:59 08/29/16 09:00 Dextrose (Dextrose 50%) STAT PRN IV Hypoglycemia 08/25/16 20:15 09/24/16 20:14 Olanzapine (ZyPREXA) 2.5 mg BIDPRN PRN ORAL agitation 08/25/16 20:15 09/24/16 20:14 08/30/16 00:07 Sodium 1,000 ml @ 75 mls/hr [id number] IV 08/29/16 17:30 09/28/16 17:29 08/30/16 07:40 Vancomycin HCl (Vanco rx to dose) 1 ea DAILY PRN MISC Per rx protocol 08/25/16 20:15 09/24/16 20:14 Vancomycin HCl/ Dextrose (Vancomycin/D5W) 275 ml @ 183.333 mls/hr Q24H IVPB 08/30/16 18:00 09/04/16 17:59 Allergies: Coded Allergies: PENICILLINS (Unverified Allergy, Unknown, 08/28/16) Uncoded Allergies: pcn (Allergy, Unknown, 08/27/16) per nephew pcn allergy ROS Limited/Unobtainable: Yes Subjective 86 YO F admitted with cellulitis leg. Now vaginal bleeding. Await CT abdomen/ pelvis. Cover for Int Med-Dr Ham Objective Last Vital Signs Date Time Temp Pulse Resp B/P Pulse Ox O2 Delivery O2 Flow Rate FiO2 08/30/16 11:33 97.9 73 19 122/64 98 Room Air Laboratory Tests Test 08/29/16 19:03 08/30/16 06:00 Vancomycin Level Trough 3.5 ug/mL (5.0-12.0) L White Blood Count 6.0 K/UL (4.8-10.8) Red Blood Count 3.64 M/UL (4.20-5.40) L Hemoglobin 9.3 G/DL (12.0-16.0) L Hematocrit 30.1 % (37.0-47.0) L Mean Corpuscular Volume 83 FL (80-99) Mean Corpuscular Hemoglobin 25.7 PG (27.0-31.0) L Mean Corpuscular Hemoglobin Concent 31.0 G/DL (32.0-36.0) L Red Cell Distribution Width 13.4 % (11.6-14.8) Platelet Count 374 K/UL (150-450) Mean Platelet Volume 5.7 FL (6.5-10.1) L Neutrophils (%) (Auto) 70.5 % (45.0-75.0) Lymphocytes (%) (Auto) 18.7 % (20.0-45.0) L Monocytes (%) (Auto) 8.1 % (1.0-10.0) Eosinophils (%) (Auto) 1.6 % (0.0-3.0) Basophils (%) (Auto) 1.1 % (0.0-2.0) Sodium Level 144 mEQ/L (135-145) Potassium Level 3.4 mEQ/L (3.4-4.9) Chloride Level 104 mEQ/L (98-107) Carbon Dioxide Level 25 mEQ/L (20-30) Anion Gap 15 (5-15) Blood Urea Nitrogen 8 mg/dL (7-23) Creatinine 0.6 mg/dL (0.5-0.9) Estimat Glomerular Filtration Rate mL/min (>60) Glucose Level 103 mg/dL (74-106) Calcium Level 8.2 mg/dL (8.6-10.2) L Microbiology Date/Time Source Procedure Growth Status 08/27/16 17:30 Wound Gram Stain Pending Resulted 08/27/16 17:30 Wound Aerobic Culture - Preliminary Resulted 08/27/16 17:30 Wound Anaerobic Culture - Preliminary Resulted Intake and Output 08/29/16 08/30/16 19:00 07:00 Intake Total 1057.5 ml 1272.500 ml Balance 1057.5 ml 1272.500 ml Intake Oral 420 ml 360 ml IV Total 637.5 ml 912.500 ml # Voids 3 9 # Bowel Movements 1 Objective General: alert, cooperative, no distress, appears stated age Head: normocephalic, without obvious abnormality, atraumatic Eyes: conjunctivae/corneas clear. PERRL, EOM's intact Throat: lips, mucosa, and tongue normal. MMM Neck: supple, symmetrical, trachea midline, and no JVD Lungs: clear to auscultation bilaterally Heart: regular rate and rhythm, S1, S2 normal, no murmur, click, rub or gallop Abdomen: soft, non-tender, non-distended, bowel sounds normal; no masses or organomegaly Extremities: extremities normal, atraumatic, no cyanosis or edema Pulses: 2+ and symmetric Skin: Left leg with erythema and ulcer;skin color, texture, turgor normal; no rashes or lesions Neurologic: grossly normal, no focal deficits Assessment/Plan Problem List: (1) Hypertension (2) Renal failure (3) Peripheral vascular disease Assessment & Plan: await vascular surg consult. (4) Alzheimer's dementia (5) Major depression (6) Cellulitis of leg, left Assessment & Plan: Continue vanco (7) Osteoporosis (8) Dementia with behavioral disturbance Assessment & Plan: Cont zyprexa prn. (9) Menorrhagia Assessment & Plan: Await CT abdomen/pelvis. Hold heparin. Await BARBER SHOP MANAGER consult- Dr Tanner notified. Assessment/Plan Discharge planning: [facility] shelter fac. BRAULIO VASQUEZ Aug 30, 2016 12:12
--- NOTE | 2016-08-30 14:08 | Consultation ---
DATE OF CONSULTATION: 08/29/2016 NOTE: "POOR AUDIO QUALITY" CONSULTING PHYSICIAN: Nati Lin M.D. ATTENDING PHYSICIAN: Matteo Ham M.D. REASON FOR CONSULTATION: Vaginal bleeding, spotting. HISTORY OF PRESENT ILLNESS: This is an 86-year-old female with history of severe dementia, depression, hypertension, and several other medical conditions. I was invited to see this patient due to the vaginal light bleeding, spotting noted by nurse for the last four days. PAST MEDICAL HISTORY: Her medical history includes Alzheimer disease, depression, high blood pressure, osteoporosis. Due to severe dementia, contact with the patient was absolutely impossible. I want to report the which was significantly reflected by the patient's behavior and very strong resistance. PHYSICAL EXAMINATION: VITAL SIGNS: Her vital signs were stable. BREASTS: Her breast exam did not reveal any masses. Nipples were without discharge. ABDOMEN: Soft, nontender with normal bowel sounds. PELVIC: Her vulva looked normal with no lesions. Vagina only examined with one finger allowing me to feel partially the vagina. I was not able to reach the cervix because resistance of the patient was extremely strong and I was not able to accomplish the exam. I discussed with breeder hen service technician immediately after which vaginal portion and external portion obstructing the . Normal findings were reported to me and inner lining of the uterus endometrial lining was not visible. IMPRESSION: 1. Postmenopausal bleeding. 2. Hypertension. 3. Alzheimer disease. 4. Depression. RECOMMENDATION: The patient endometrial biopsy and if family agrees, she will be put under general anesthesia and the procedure will be performed. Please contact me and decision will be made and we will undertake all necessary steps to bring the patient to the surgical endometrial biopsy or possible dilation and curettage . Thank you for inviting me to see this patient. Nati Tanner M.D. DR: Judy JOB#: [id number] CC:
[2016-08-30 15:51] VITALS: BP 120/68
--- NOTE | 2016-08-30 16:18 | Cardiology Report ---
APPROVED REPORT EKG Measurement Heart [id number] CT [id number] Normal sinus rhythm Normal ECG
[2016-08-30] MEDS ORDERED: Vancomycin 1250mg/D5W 275ml IVPB SCH ×4 (18:00→22:00)
[2016-08-30 19:00] VITALS: BP 107/59
[2016-08-31 08:00] VITALS: BP 112/61
[2016-08-31 08:04] LABS: BASOPHILS % (AUTO) 1.4 % (0.0-2.0); EOSINOPHILS % (AUTO) 2.6 % (0.0-3.0); LYMPHOCYTES % (AUTO) 21.5 % (20.0-45.0); MEAN CORPUSCULAR HEMOGLOBIN 25.5 PG (27.0-31.0); MEAN CORPUSCULAR HGB CONC 30.8 G/DL (32.0-36.0); MEAN CORPUSCULAR VOLUME 83 FL (80-99); MEAN PLATELET VOLUME 5.8 FL (6.5-10.1); MONOCYTES % (AUTO) 7.4 % (1.0-10.0); NEUTROPHILS % (AUTO) 67.2 % (45.0-75.0); PLATELET COUNT 351 K/UL (150-450); RED BLOOD COUNT 3.69 M/UL (4.20-5.40); RED CELL DISTRIBUTION WIDTH 14.1 % (11.6-14.8); WHITE BLOOD COUNT 5.1 K/UL (4.8-10.8)
[2016-08-31 08:30] LABS: ANION GAP 14 (5-15); CALCIUM 8.2 mg/dL (8.6-10.2); CARBON DIOXIDE 24 mEQ/L (20-30); CHLORIDE 105 mEQ/L (98-107); CREATININE 0.6 mg/dL (0.5-0.9); HEMOLYSIS 2; POTASSIUM 3.8 mEQ/L (3.4-4.9); SODIUM 143 mEQ/L (135-145)
--- NOTE | 2016-08-31 10:53 | Wound Nurse Progress Note ---
Wound RN Progress Note Wound Consult recieved consult , reassessed patient no new findings noted. TITO RODRIGUEZ Aug 31, 2016 10:52
[2016-08-31 12:03] VITALS: BP 113/56
[2016-08-31] MEDS: 1/2NS w/KCl 20mEq 1000ml 1,000 ML IV SCH (13:29)
[2016-08-31 15:54] VITALS: BP 102/55
[2016-08-31] MEDS ORDERED: Vancomycin 1250mg/D5W 275ml IVPB ONE ×2 (16:00)
--- NOTE | 2016-08-31 17:11 | Internal Med Progress Note ---
Subjective Date of Service: Aug 31, 2016 Physician Name Braulio Vasquez Attending Physician Matteo Ham M.D. Current Medications Medications (Trade) Dose Ordered Sig/Gregorio Route PRN Reason Start Time Stop Time Status Last Admin Dose Admin Acetaminophen (Tylenol) 650 mg Q4H PRN ORAL Mild Pain (Pain Scale 1-3) 08/25/16 20:15 09/24/16 20:14 Collagenase 1 applic 1 applic DAILY TOPIC 08/27/16 09:00 09/26/16 08:59 08/31/16 09:02 Dextrose (Dextrose 50%) STAT PRN IV Hypoglycemia 08/25/16 20:15 09/24/16 20:14 Doxycycline Monohydrate 100 mg 100 mg BID ORAL 09/01/16 09:00 09/08/16 08:59 Olanzapine (ZyPREXA) 2.5 mg BIDPRN PRN ORAL agitation 08/25/16 20:15 09/24/16 20:14 08/30/16 00:07 Sodium (0.45%NS w/KCl 20mEq 1000ml) 1,000 ml @ 75 mls/hr [id number] IV 08/29/16 17:30 09/28/16 17:29 08/31/16 13:29 Vancomycin HCl (Vanco rx to dose) 1 ea DAILY PRN MISC Per rx protocol 08/25/16 20:15 09/24/16 20:14 Vancomycin HCl/ Dextrose (Vancomycin/D5W) 275 ml @ 183.333 mls/hr ONCE ONCE IVPB 08/31/16 16:00 08/31/16 17:29 08/31/16 16:01 Allergies: Coded Allergies: PENICILLINS (Unverified Allergy, Unknown, 08/28/16) Uncoded Allergies: pcn (Allergy, Unknown, 08/27/16) per nephew pcn allergy ROS Limited/Unobtainable: Yes Subjective 86 YO F admitted with cellulitis leg. Now vaginal bleeding. Await CT abdomen/ pelvis. Cover for Int Med-Dr Ham Unable to discharge to [facility] living [facility] today-see discharge planning note. Objective Last Vital Signs Date Time Temp Pulse Resp B/P Pulse Ox O2 Delivery O2 Flow Rate FiO2 08/31/16 15:54 97.8 75 18 102/55 99 Room Air Laboratory Tests Test 08/31/16 07:50 08/31/16 07:55 White Blood Count 5.1 K/UL (4.8-10.8) Red Blood Count 3.69 M/UL (4.20-5.40) L Hemoglobin 9.4 G/DL (12.0-16.0) L Hematocrit 30.6 % (37.0-47.0) L Mean Corpuscular Volume 83 FL (80-99) Mean Corpuscular Hemoglobin 25.5 PG (27.0-31.0) L Mean Corpuscular Hemoglobin Concent 30.8 G/DL (32.0-36.0) L Red Cell Distribution Width 14.1 % (11.6-14.8) Platelet Count 351 K/UL (150-450) Mean Platelet Volume 5.8 FL (6.5-10.1) L Neutrophils (%) (Auto) 67.2 % (45.0-75.0) Lymphocytes (%) (Auto) 21.5 % (20.0-45.0) Monocytes (%) (Auto) 7.4 % (1.0-10.0) Eosinophils (%) (Auto) 2.6 % (0.0-3.0) Basophils (%) (Auto) 1.4 % (0.0-2.0) Sodium Level 143 mEQ/L (135-145) Potassium Level 3.8 mEQ/L (3.4-4.9) Chloride Level 105 mEQ/L (98-107) Carbon Dioxide Level 24 mEQ/L (20-30) Anion Gap 14 (5-15) Blood Urea Nitrogen 7 mg/dL (7-23) Creatinine 0.6 mg/dL (0.5-0.9) Estimat Glomerular Filtration Rate mL/min (>60) Glucose Level 145 mg/dL (74-106) H Calcium Level 8.2 mg/dL (8.6-10.2) L Intake and Output 08/30/16 08/31/16 19:00 07:00 Intake Total 1614 ml 750 ml Output Total 950 ml Balance 664 ml 750 ml Intake Oral 660 ml IV Total 954 ml 750 ml Output Urine Total 950 ml # Voids 5 # Bowel Movements 1 Objective General: alert, cooperative, no distress, appears stated age Head: normocephalic, without obvious abnormality, atraumatic Eyes: conjunctivae/corneas clear. PERRL, EOM's intact Throat: lips, mucosa, and tongue normal. MMM Neck: supple, symmetrical, trachea midline, and no JVD Lungs: clear to auscultation bilaterally Heart: regular rate and rhythm, S1, S2 normal, no murmur, click, rub or gallop Abdomen: soft, non-tender, non-distended, bowel sounds normal; no masses or organomegaly Extremities: extremities normal, atraumatic, no cyanosis or edema Pulses: 2+ and symmetric Skin: Left leg with erythema and ulcer;skin color, texture, turgor normal; no rashes or lesions Neurologic: grossly normal, no focal deficits Assessment/Plan Problem List: (1) Hypertension (2) Renal failure (3) Peripheral vascular disease Assessment & Plan: await vascular surg consult. (4) Alzheimer's dementia (5) Major depression (6) Cellulitis of leg, left Assessment & Plan: Continue vanco (7) Osteoporosis (8) Dementia with behavioral disturbance Assessment & Plan: Cont zyprexa prn. (9) Menorrhagia Assessment & Plan: Await CT abdomen/pelvis. Hold heparin. Await QUALITY CONTROL consult- Dr Tanner notified. Status: stable Assessment/Plan Discharge planning: [facility] assisted living fac on 09/01/16. BRAULIO VASQUEZ Aug 31, 2016 17:11
[2016-08-31] MEDS ORDERED: DOXYCYCLINE HY100 M2 ORAL (17:13)
[2016-08-31 19:00] VITALS: BP 133/63
[2016-09-01] VITALS: BP 133/63
[2016-09-01 04:00] VITALS: BP 136/66
[2016-09-01 06:33] LABS: BASOPHILS % (AUTO) 1.8 % (0.0-2.0); EOSINOPHILS % (AUTO) 2.7 % (0.0-3.0); LYMPHOCYTES % (AUTO) 20.8 % (20.0-45.0); MEAN CORPUSCULAR HEMOGLOBIN 25.6 PG (27.0-31.0); MEAN CORPUSCULAR HGB CONC 30.8 G/DL (32.0-36.0); MEAN CORPUSCULAR VOLUME 83 FL (80-99); MEAN PLATELET VOLUME 5.6 FL (6.5-10.1); MONOCYTES % (AUTO) 10.6 % (1.0-10.0); PLATELET COUNT 351 K/UL (150-450); RED BLOOD COUNT 3.75 M/UL (4.20-5.40); RED CELL DISTRIBUTION WIDTH 13.9 % (11.6-14.8); WHITE BLOOD COUNT 5.5 K/UL (4.8-10.8)
[2016-09-01 06:40] LABS: ANION GAP 11 (5-15); CALCIUM 8.6 mg/dL (8.6-10.2); CARBON DIOXIDE 27 mEQ/L (20-30); CHLORIDE 104 mEQ/L (98-107); CREATININE 0.6 mg/dL (0.5-0.9); HEMOLYSIS 0; POTASSIUM 3.7 mEQ/L (3.4-4.9); SODIUM 142 mEQ/L (135-145)
[2016-09-01 08:32] VITALS: BP 143/89
--- NOTE | 2016-09-01 11:23 | Diagnostic Imaging Report ---
Indications: Postmenopausal vaginal bleeding Technique: Transabdominal real-time grayscale and duplex Doppler imaging of the pelvis was performed.. Transvaginal imaging attempted, patient refused completion Findings: Comparison: None Uterus poorly demonstrated, measures 7.4 x 6.7 x 3.7cm. It demonstrates apparent diffuse myometrial echogenicity with contour lobulation and multiple calcifications. Discrete mass is not discernible.. The endometrial complex cannot be adequately visualized. Cervix cannot be adequately visualized.. No obvious free fluid is present in the cul-de-sac. Right ovary not identified. No extra-ovarian abnormality is seen. Left ovary not identified. No extra-ovarian abnormality is seen. IMPRESSION: Limited exam demonstrating uterine heterogeneity with calcifications. One or more fibroids not excludable. Other pathology not excludable. Nonvisualization of ovaries.
--- NOTE | 2016-09-01 18:41 | Internal Med Progress Note ---
Subjective Date of Service: Sep 01, 2016 Physician Name Braulio Vasquez Attending Physician Matteo Ham M.D. Allergies: Coded Allergies: PENICILLINS (Unverified Allergy, Unknown, 08/28/16) Uncoded Allergies: pcn (Allergy, Unknown, 08/27/16) per nephew pcn allergy Subjective 86 YO F admitted with cellulitis leg. Cover for Int Med-Dr Ham Await discharge to [facility] today-see discharge planning note. Objective Last Vital Signs Date Time Temp Pulse Resp B/P Pulse Ox O2 Delivery O2 Flow Rate FiO2 09/01/16 08:32 97.7 76 16 143/89 98 Room Air Laboratory Tests Test 09/01/16 05:15 White Blood Count 5.5 K/UL (4.8-10.8) Red Blood Count 3.75 M/UL (4.20-5.40) L Hemoglobin 9.6 G/DL (12.0-16.0) L Hematocrit 31.2 % (37.0-47.0) L Mean Corpuscular Volume 83 FL (80-99) Mean Corpuscular Hemoglobin 25.6 PG (27.0-31.0) L Mean Corpuscular Hemoglobin Concent 30.8 G/DL (32.0-36.0) L Red Cell Distribution Width 13.9 % (11.6-14.8) Platelet Count 351 K/UL (150-450) Mean Platelet Volume 5.6 FL (6.5-10.1) L Neutrophils (%) (Auto) 64.0 % (45.0-75.0) Lymphocytes (%) (Auto) 20.8 % (20.0-45.0) Monocytes (%) (Auto) 10.6 % (1.0-10.0) H Eosinophils (%) (Auto) 2.7 % (0.0-3.0) Basophils (%) (Auto) 1.8 % (0.0-2.0) Sodium Level 142 mEQ/L (135-145) Potassium Level 3.7 mEQ/L (3.4-4.9) Chloride Level 104 mEQ/L (98-107) Carbon Dioxide Level 27 mEQ/L (20-30) Anion Gap 11 (5-15) Blood Urea Nitrogen 9 mg/dL (7-23) Creatinine 0.6 mg/dL (0.5-0.9) Estimat Glomerular Filtration Rate mL/min (>60) Glucose Level 91 mg/dL (74-106) Calcium Level 8.6 mg/dL (8.6-10.2) Intake and Output 08/31/16 09/01/16 19:00 07:00 Intake Total 1750.000 ml 1020 ml Balance 1750.000 ml 1020 ml Intake Oral 800 ml 420 ml IV Total 950.000 ml 600 ml # Voids 20 13 Objective General: alert, cooperative, no distress, appears stated age Head: normocephalic, without obvious abnormality, atraumatic Eyes: conjunctivae/corneas clear. PERRL, EOM's intact Throat: lips, mucosa, and tongue normal. MMM Neck: supple, symmetrical, trachea midline, and no JVD Lungs: clear to auscultation bilaterally Heart: regular rate and rhythm, S1, S2 normal, no murmur, click, rub or gallop Abdomen: soft, non-tender, non-distended, bowel sounds normal; no masses or organomegaly Extremities: extremities normal, atraumatic, no cyanosis or edema Pulses: 2+ and symmetric Skin: Left leg with erythema and ulcer;skin color, texture, turgor normal; no rashes or lesions Neurologic: grossly normal, no focal deficits Assessment/Plan Problem List: (1) Hypertension (2) Renal failure (3) Peripheral vascular disease Assessment & Plan: await vascular surg consult. (4) Alzheimer's dementia (5) Major depression (6) Cellulitis of leg, left Assessment & Plan: Continue vanco (7) Osteoporosis (8) Dementia with behavioral disturbance Assessment & Plan: Cont zyprexa prn. (9) Menorrhagia Assessment & Plan: Hold heparin.See GEOSCIENCE SPECIALIST note Status: stable Assessment/Plan Discharge planning: [facility] assisted living fac today 09/01/16. BRAULIO VASQUEZ Sep 01, 2016 18:41
--- NOTE | 2016-09-04 08:50 | Discharge Summary ---
Discharge Summary Hospital Course Date of Admission Aug 25, 2016 at 18:49 Date of Discharge Sep 01, 2016 at 10:11 Admitting Diagnosis L LEG CELLULITIS HPI Adela Rivera is a 86 year old female who was admitted on Aug 25, 2016 at 18 :49 for Left Leg Cellulitits Hospital Course dc summary#[id number] Discharge Medications New Medications: Doxycycline Hyclate (Doxycycline Hyclate) 100 Mg Capsule 100 MG ORAL BID for 7 Days, CAP Continued Medications: Acetaminophen* (Tylenol Extra Strength*) 500 Mg Tablet 500 MG ORAL TWICE A DAY, TAB 0 Refills Acetaminophen* (Acetaminophen 325MG Tablet*) 325 Mg Tablet 325 MG ORAL Q6H PRN for For Pain, TAB Citalopram Hydrobromide* (Citalopram Hbr*) 10 Mg Tablet 10 MG ORAL DAILY, TAB Dextran 70/Hypromellose (Artificial Tears) 1 Each Droperette 1 DRP BOTH EYES PRN PRN for Dry Eyes Donepezil Hcl* (Donepezil Hcl*) 10 Mg Tab.rapdis 10 MG ORAL DAILY, TAB Ferrous Sulfate* (Ferrous Sulfate*) 325 Mg Tablet 325 MG ORAL TWICE A DAY, #60 TAB 0 Refills Gabapentin* (Gabapentin*) 300 Mg Capsule 300 MG ORAL THREE TIMES A DAY, CAP 0 Refills Lactose-Reduced Food (Ensure Original) 237 Ml Liquid 237 ML PO TWICE A DAY, ML Loperamide Hcl (Loperamide) 2 Mg Capsule 2 MG PO PRN PRN for Diarrhea, CAP Lorazepam* (Lorazepam*) 1 Mg Tablet 1 MG ORAL TWICE A DAY, TAB Omeprazole (Omeprazole) 40 Mg Capsule.dr 40 MG ORAL DAILY, CAP Vitamin D (Vitamin D3) 400 Unit Tablet 2000 UNITS ORAL DAILY, TAB [Diclofenac 1% Gel] () 2 GM TOPIC PRN PRN for For Pain [Triamcinolone 0.1%Cr] () 1 APPLIC TP PRN PRN for Itching Discharge Condition Upon Discharge: stable Discharge Disposition Patient was discharged to Assisted Living Discharge Diagnoses: Discharge Instructions Discharge Instructions Special Instructions I have been assigned to complete a D/C Summary on this account. I was not involved in the patient management Rand Rea NP (Vanchtein) Sep 04, 2016 08:50
--- NOTE | 2016-09-05 00:08 | Discharge Summary 2 SIG ---
DATE OF ADMISSION: 08/25/2016 DATE OF DISCHARGE: 09/01/2016 REASON FOR ADMISSION: 86-year-old female presented to emergency room from assisted living where she resides, for evaluation of a nonhealing wound on the left lower extremity. The patient with this wound present for few weeks ago, was treated with oral antibiotics without improvement. No fever. No chills. Workup in the ER revealed no leukocytosis. Stable hemoglobin and hematocrit. The patient was admitted for IV antibiotics. ADMITTING DIAGNOSES: 1. Cellulitis of the left lower extremity. 2. Alzheimer dementia. 3. Left lower extremity wound, likely arterial ulcer. 4. Peripheral arterial disease. 5. Hypertension. 6. Depression. HOSPITAL STAY: The patient was admitted for IV antibiotics. Venous duplex of bilateral lower extremities was negative. Arterial duplex of bilateral lower extremities revealed moderate ischemia of left lower extremity, but no evidence of occlusion. The Vascular Surgery consult was requested. Vascular surgeon recommended wound care, Podiatry and palstic Surgery consult, as well as obtain CT angiogram of the abdomen and lower extremity to evaluate perfusion and circulation. DVT prophylaxis provided. Wound care provided as per cargo services coordinator's instructions, who had seen the patient and provided further recommendations. Patient was further reevaluated by wound care nurse. Plastic surgeon had seen the patient, reviewed , evaluated and updated wound care. The patient was on the IV vancomycin while in the hospital and was discharged on oral doxycycline for additional seven days. The CT angiogram was not done since arterial duplex revealed moderate ischemia, but no evidence of occlusion. Wound was healing. The patient also exhibited evidence of vaginal spotting. CLINICAL INSTRUCTOR consult was requested. Transvaginal ultrasound revealed heterogeneous uterus with a calcification, one or more fibroids not excludable. Nonvisualization of the ovaries. CLINICAL INSTRUCTOR recommended endometrial biopsy for postmenopausal bleeding under general anesthesia if the family will agree. Hemoglobin and hematocrit remained stable. The patient had a sitter one-to-one due to the history of Alzheimer dementia with behavioral changes. Zyprexa administered as needed. DVT prophylaxis provided. Blood pressure remained stable during admission, was not on any antihypertensive medication. Vitamin D continued. Celexa and Aricept continued. The patient was stable for discharge back to facility. DISCHARGE DIAGNOSES: 1. Cellulitis of the left lower extremity. 2. Left lateral ankle wound with necrotic ulcer. 3. Peripheral arterial disease. 4. Alzheimer dementia with behavioral changes. 5. History of hypertension. . 6. Osteoporosis. 7. Depression. DISCHARGE MEDICATIONS: See medication reconciliation list. DISCHARGE INSTRUCTIONS: The patient to follow up with the primary medical doctor. Matteo Ham MD I have been assigned to dictate discharge summary on this account and I was not involved in the patient's management. Rand PaulHelen Hayes HospitalKerry N.PAnitha DR: PATTI JOB#: [id number] CC: ELIZABETH
== END 2016-09-01 10:11 | disposition home or self-care (01) | DRG 603 ==
LOC: ENRESERVDT → ENRESERVTM → EDBD 18:07 → EMR 18:38 → 4E 18:49 → EDBEDREQ 20:18 → 4E 21:06
DX: L03.116 Cellulitis of left lower limb (principal); G30.9 Alzheimer's disease, unspecified; F02.81 Dementia in other diseases classified elsewhere, unspecified severity, with behavioral disturbance; L97.329 Non-pressure chronic ulcer of left ankle with unspecified severity; I73.9 Peripheral vascular disease, unspecified; M81.0 Age-related osteoporosis without current pathological fracture; I12.9 Hypertensive chronic kidney disease with stage 1 through stage 4 chronic kidney disease, or unspecified chronic kidney disease; N18.9 Chronic kidney disease, unspecified; N95.0 Postmenopausal bleeding; F32.9 Major depressive disorder, single episode, unspecified; Z88.0 Allergy status to penicillin
CPT/HCPCS: 36415; 71010; 76830; 76856; 80048; 80053; 80202; 81001; 82553; 85025; 87040; 87070; 87075; 87081; 87181; 87205; 93005; 93925; 93970

== ENCOUNTER 2016-09-13 12:49 | Outpatient (RCR) | payer MEDICARE ==
[~2016-09-13 12:49] MED LIST changes: -Lidocaine 4% Top Soln 50ml TOPIC ONE
== END 2016-09-17 | disposition home or self-care (01) ==
LOC: WCC 12:49
DX: L03.116 Cellulitis of left lower limb (principal); L97.323 Non-pressure chronic ulcer of left ankle with necrosis of muscle; R60.0 Localized edema; I73.9 Peripheral vascular disease, unspecified; Z90.89 Acquired absence of other organs; G30.9 Alzheimer's disease, unspecified; F02.80 Dementia in other diseases classified elsewhere, unspecified severity, without behavioral disturbance, psychotic disturbance, mood disturbance, and anxiety; D64.9 Anemia, unspecified; M19.90 Unspecified osteoarthritis, unspecified site
CPT/HCPCS: 11043

== ENCOUNTER 2016-09-18 11:48 | Outpatient (RCR) | payer MEDICARE ==
[~2016-09-18] VITALS: Ht 162.6 cm; Wt 63.5 kg
[2016-09-22] MEDS ORDERED: Lidocaine HCl 2% Jelly 5ml Tube TOPIC ONE (12:15)
== END 2016-10-18 | disposition home or self-care (01) ==
LOC: WCC 11:48
DX: L03.116 Cellulitis of left lower limb (principal); L97.323 Non-pressure chronic ulcer of left ankle with necrosis of muscle; R60.0 Localized edema; I73.9 Peripheral vascular disease, unspecified; Z90.89 Acquired absence of other organs; G30.9 Alzheimer's disease, unspecified; F02.80 Dementia in other diseases classified elsewhere, unspecified severity, without behavioral disturbance, psychotic disturbance, mood disturbance, and anxiety; M19.90 Unspecified osteoarthritis, unspecified site; M81.0 Age-related osteoporosis without current pathological fracture
CPT/HCPCS: 11043; C5271; G0463; Q4102